=== PATIENT | male | born 1975 | race Caucasian/White ===

== ENCOUNTER 2022-02-07 13:11 | Emergency (ER) | payer OTHER ==
[~2022-02-07] VITALS: Ht 180.3 cm; Wt 104.0 kg
--- NOTE | 2022-02-07 13:29 | PHYS DOC ---
Adult General HPI HPI Patient presents with complaint of lightheadedness and near syncopal episodes. Patient is status post aortic dissection repair at [facility] 2 weeks ago. Patient reports he was released from the hospital on multiple new blood pressure medications. Patient reports since his release from the hospital he has felt very lightheaded, patient has had episodes where he is felt that he was nearly passing out. Patient reports a near syncopal episode this morning in which he fell to the ground but did not fully lose consciousness. Patient states he does have intermittent pressure to his anterior chest over the last 2 weeks as well. Patient denies any fevers or chills. Patient denies any palpitations. Review of Systems Review of Systems Constitutional: Denies fever or chills [] Eyes: Denies change in visual acuity, redness, or eye pain [] HENT: Denies nasal congestion or sore throat [] Respiratory: Denies cough or shortness of breath [] Cardiovascular: chest pain, near syncope GI: Denies abdominal pain, nausea, vomiting, bloody stools or diarrhea [] : Denies dysuria or hematuria [] Musculoskeletal: Denies back pain or joint pain [] Integument: Denies rash or skin lesions [] Neurologic: Denies headache, focal weakness or sensory changes [] Endocrine: Denies polyuria or polydipsia [] All other systems were reviewed and found to be within normal limits, except as documented in this note. Physical Exam Physical Exam Constitutional: Well developed, well nourished, no acute distress, non-toxic appearance. [] HENT: Normocephalic, atraumatic, bilateral external ears normal, oropharynx moist, no oral exudates, nose normal. [] Eyes: PERRLA, EOMI, conjunctiva normal, no discharge. [] Neck: Normal range of motion, no tenderness, supple, no stridor. [] Cardiovascular:Heart rate regular rhythm, no murmur [] Lungs & Thorax: Bilateral breath sounds clear to auscultation [] Abdomen: Bowel sounds normal, soft, no tenderness, no masses, no pulsatile masses. [] Skin: Warm, dry, no erythema, no rash. [] Back: No tenderness, no CVA tenderness. [] Extremities: No tenderness, no cyanosis, no clubbing, ROM intact, no edema. [] Neurologic: Alert and oriented X 3, normal motor function, normal sensory function, no focal deficits noted. [] Psychologic: Affect normal, judgement normal, mood normal. [] EKG EKG ECC physician read, normal sinus rhythm, normal [place] interval, no ST changes [] Radiology/Procedures Radiology/Procedures [] Heart Score C/O Chest Pain: Yes HEART Score for Chest Pain: HEART Score for Chest Pain Response (Comments) Value History Moderately Suspicious 1 ECG Normal 0 Age >45 - < 65 1 Risk Factors >3 Risk Factors or Hx CAD 2 Total 4 Risk Factors: Risk Factors: DM, Current or recent (<one month) smoker, HTN, HLP, family hist ory of CAD, obesity. Risk Scores: Risk Factors: DM, Current or recent (<one month) smoker, HTN, HLP, family history of CAD, obesity. Course & Med Decision Making Course & Med Decision Making Patient with concerning symptoms of hypotension and near syncope as well as chest pain intermittently in the setting of recent repair of aortic dissection at an outside facility. Patient will get full labs and work-up with CT angio chest abdomen pelvis as well. 1620-patient with reassuring lab evaluation in the emergency department with labs at the patient baseline without significant anemia, cardiac enzymes negative. CT angio pursued and overall normal findings. These findings were discussed with the patient's vascular surgeon Dr. Rose at [facility]. Patient with significant orthostatic changes and overall hypotensive, l abs all the patient based on without significant abnormality. Overall patient is likely overmedicated as the patient was formally on no blood pressure medication and started on amlodipine, Coreg, clonidine doxazosin, Lasix, losartan, spironolactone, tamsulosin all recently. Dr. Villegas with cardiology at [facility] contacted and medications were discussed. Decision has been made to discontinue the clonidine, discontinue the doxazosin, decrease the dose of Coreg from 50 mg to 25 mg, and decreasing dose losartan from 100 mg to 50 mg. These were discussed at length with the patient and family. Patient does have an appointment with cardiology in 4 days for recheck of blood pressure and further medication adjustment at that time. Cardiology encouraged the patient to contact the clinic early in the week for possible further medication adjustment prior to the appointment should he continue to have hypotension. Patient and family are comfortable plan of care, patient will be discharged home, return precautions discussed Laboratory Tests Test 02/07/22 13:22 White Blood Count 9.7 x10^3/uL Red Blood Count 4.28 x10^6/uL Hemoglobin 14.1 g/dL Hematocrit 40.6 % Mean Corpuscular Volume 95 fL Mean Corpuscular Hemoglobin 33 pg Mean Corpuscular Hemoglobin Concent 35 g/dL Red Cell Distribution Width 12.6 % Platelet Count 418 x10^3/uL Neutrophils (%) (Auto) 76 % Lymphocytes (%) (Auto) 14 % Monocytes (%) (Auto) 8 % Eosinophils (%) (Auto) 2 % Basophils (%) (Auto) 1 % Neutrophils # (Auto) 7.4 x10^3uL Lymphocytes # (Auto) 1.4 x10^3/uL Monocytes # (Auto) 0.7 x10^3/uL Eosinophils # (Auto) 0.2 x10^3/uL Basophils # (Auto) 0.1 x10^3/uL Sodium Level 135 mmol/L Potassium Level 4.7 mmol/L Chloride Level 96 mmol/L Carbon Dioxide Level 29 mmol/L Anion Gap 10 Blood Urea Nitrogen 32 mg/dL Creatinine 2.3 mg/dL Estimated GFR (Cockcroft-Gault) 30.5 BUN/Creatinine Ratio 14 Glucose Level 146 mg/dL Calcium Level 9.3 mg/dL Total Bilirubin 1.1 mg/dL Aspartate Amino Transf (AST/SGOT) 34 U/L Alanine Aminotransferase (ALT/SGPT) 119 U/L Alkaline Phosphatase 200 U/L Creatine Kinase 67 U/L Creatine Kinase MB (Mass) < 0.5 ng/mL Creatine Kinase MB Relative Index % Troponin I High Sensitivity 4 ng/L Total Protein 8.0 g/dL Albumin 3.6 g/dL Albumin/Globulin Ratio 0.8 Current Medications Medications (Trade) Dose Ordered Sig/Harvey Route PRN Reason Start Time Stop Time Status Last Admin Dose Admin Iohexol (Omnipaque 350 Mg/ml) 100 ml 1X ONCE IV 02/07/22 13:45 02/07/22 13:49 DC 02/07/22 14:00 [] Dragon Disclaimer Dragon Disclaimer This electronic medical record was generated, in whole or in part, using a voice recognition dictation system. Departure Departure: Impression: Primary Impression: Orthostatic hypotension Additional Impressions: Near syncope Status post aortic dissection repair Disposition: HOME / SELF CARE / HOMELESS Condition: STABLE Referrals: SOLTYS,TARUN L DO (PCP) Patient Instructions: Orthostatic Hypotension Additional Instructions: Return to the emergency department for any worsening symptoms or other concerns. Make the following medication changes Discontinue your clonidine. Discontinue your doxazosin Decrease your losartan dose from 100 mg to 50 mg daily Decrease your carvedilol dose from 50 mg to 25 mg daily Contact the cardiology clinic at [facility] for further medication adjustment. Follow-up later this week with them as scheduled Problem Qualifiers JJ BLOOM MD February 07, 2022 13:29
[2022-02-07 13:41] LABS: BASO # 0.1 x10^3/uL (0.0-0.2); BASO % 1 % (0-3); EOS # 0.2 x10^3/uL (0.0-0.7); EOS % 2 % (0-3); HEMATOCRIT 40.6 % (39.0-53.0); HEMOGLOBIN 14.1 g/dL (13.0-17.5); LYMPH # 1.4 x10^3/uL (1.0-4.8); LYMPH % 14 % (24-48); MEAN CORPUSCULAR HEMOGLOBIN 33 pg (25-35); MEAN CORPUSCULAR HGB CONC 35 g/dL (31-37); MEAN CORPUSCULAR VOLUME 95 fL (79-100); MONO # 0.7 x10^3/uL (0.0-1.1); MONO % 8 % (0-9); NEUT # 7.4 x10^3uL (1.8-7.7); NEUT % 76 % (31-73); PLATELET COUNT 418 x10^3/uL (140-400); RED BLOOD COUNT 4.28 x10^6/uL (4.30-5.70); RED CELL DISTRIBUTION WIDTH 12.6 % (11.5-14.5); WHITE BLOOD COUNT 9.7 x10^3/uL (4.0-11.0)
[2022-02-07] MEDS ORDERED: IOHEXOL 350 MG/ML 100 ML VIAL. IV ONE (13:45)
[2022-02-07 13:49] LABS: ANION GAP 10 (6-14); BLOOD UREA NITROGEN 32 mg/dL (8-26); BUN/CREATININE RATIO 14 (6-20); CALCIUM 9.3 mg/dL (8.5-10.1); CARBON DIOXIDE 29 mmol/L (21-32); CHLORIDE 96 mmol/L (98-107); CREATININE 2.3 mg/dL (0.7-1.3); GFR 30.5; GLUCOSE 146 mg/dL (70-99); POTASSIUM 4.7 mmol/L (3.5-5.1); SODIUM 135 mmol/L (136-145)
[2022-02-07 14:05] LABS: ALBUMIN 3.6 g/dL (3.4-5.0); ALBUMIN/GLOBULIN RATIO 0.8 (1.0-1.7); ALK PHOS 200 U/L (46-116); ALT (SGPT) 119 U/L (16-63); AST (SGOT) 34 U/L (15-37); TOTAL BILIRUBIN 1.1 mg/dL (0.2-1.0)
[2022-02-07 14:56] VITALS: BP 109/52
--- NOTE | 2022-02-07 15:06 | RAD ---
EXAMINATION: CTA chest, abdomen and pelvis with IV contrast. INDICATION:46 years, Male, aortic dissection repair, syncope. TECHNIQUE: Axial CTA images of the chest, abdomen and pelvis were obtained. Coronal and sagittal refo rmatted performed. COMPARISON: None. Exposure: One or more of the following individualized dose reduction techniques were utilized for thi s examination: 1. Automated exposure control 2. Adjustment of the mA and/or kV according to patient size 3. Use of iterative reconstruction technique. FINDINGS: VASCULAR: Ascending and aortic arch are normal in caliber without dissection. Patent endovascular stent graft e xtends from the aortic arch through the abdominal bifurcation. 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 Patent extra-stent false lumen along the left aspect of the i nfrarenal abdominal aorta supplying left renal artery. This false lumen extends to the left common il iac artery with dissection flap seen within the left internal iliac artery. Patent true lumen left co mmon iliac artery stent. Bilateral external and right internal iliac arteries are patent without sign ificant stenosis. Great vessels are patent without stenosis. SMA, celiac trunk, right renal artery an d WAN are patent without significant stenosis. NON-VASCULAR: CHEST: Visualized thyroid and esophagus are unremarkable. No lymphadenopathy in the chest. Calcified left hi lar lymph node. No cardiomegaly or pericardial effusion. No coronary artery atherosclerotic calcifica tions. Normal caliber pulmonary arteries. No focal consolidation, pleural effusion or pneumothorax. D ependent subsegmental atelectasis in bibasilar lungs. Calcified granuloma in the left lower lobe. ABDOMEN/PELVIS: Liver, spleen, pancreas, adrenal glands and kidneys are unremarkable. Cholecystectomy. No biliary spike keyon dilation. No bowel obstruction. Normal appendix. No lymphadenopathy. No pneumoperitoneum or ascit es. MUSCULOSKELETAL STRUCTURES: Multilevel degenerative changes in the spine. No acute osseous process. Small fat-containing supraumb ilical hernia. IMPRESSION: 1. Patent endovascular stent graft extends from the aortic arch through the abdominal bifurcation. 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 Patent false lumen along the left lateral aspect of the infrarenal abdominal aorta extends to the left common iliac artery wi th dissection flap extending to the left internal iliac artery. Patent true lumen left common iliac a rtery stent. 2. No acute intrathoracic or intra-abdominal findings. Electronically signed by: Joanne Roman MD (02/07/2022 3:04 PM) [facility] MEDICAL CENTERMargarito
--- NOTE | 2022-02-07 21:41 | EKG ---
[address] [address] Test Date: 2022-02-07 Test Time: 13:25:18 Pat Name: KAMRYN KELLEY Department: Room: Gender: M [employer]: : 1975 Requested By: JJ BLOOM Order Number: [id number] Reading MD: Measurements Intervals [place] Rate: 71 P: 0 NM: 168 QRS: -1 QRSD: 102 T: 8 QT: 382 QTc: 420 Interpretive Statements SINUS RHYTHM LEFTWARD AXIS OTHERWISE NORMAL ECG RI6.02 No previous ECG available for comparison
== END 2022-02-07 16:38 | disposition home or self-care (01) ==
LOC: ER 13:11
DX: I95.1 Orthostatic hypotension (principal)
CPT/HCPCS: 36415; 71045; 71275; 74174; 74175; 80053; 82553; 84484; 85025; 93005; 99285; Q9967